=== PATIENT | male | born 1965 | race American Indian/Alaskan Native ===

== ENCOUNTER 2019-08-28 11:23 | Emergency (ER) | payer SELFPAY ==
[2019-08-28 12:16] VITALS: BP 152/94
--- NOTE | 2019-08-28 12:17 | Event Note ---
ED Screening Note ED Screening Note: pt presents N/V/D that began three days ago states he has associated headache and generalized weakness abd cramping no known sick contacts no recent travel no fever pmhx HTN no allergies to meds This initial assessment/diagnostic orders/clinical plan/treatment(s) is/are subject to change based on patients health status, clinical progression and re- assessment by fellow clinical providers in the ED. Further treatment and workup at subsequent clinical providers discretion. Patient/guardian urged not to elope from the ED as their condition may be serious if not clinically assessed and managed. Initial orders include: labs
[2019-08-28 12:50] LABS: Basophils % (Auto) 0.6 % (0.0-1.8); Eosinophils # (Auto) 0.1 K/mm3 (0.0-0.4); Eosinophils % (Auto) 2.3 % (0.0-4.3); Hematocrit 41.1 % (35.5-45.6); Hemoglobin 13.8 gm/dl (11.8-15.2); Lymphocytes % (Auto) 15.3 % (13.4-35.0); Mean Corpuscular HGB Conc 34 % (32-34); Mean Corpuscular Volume 83 fl (84-94); Monocytes # (Auto) 0.7 K/mm3 (0.0-0.8); Monocytes % (Auto) 11.5 % (0.0-7.3); Platelet Count 322 K/mm3 (140-440); Red Blood Count 4.97 M/mm3 (3.65-5.03); Red Cell Distribution Width 14.4 % (13.2-15.2)
[2019-08-28 13:05] LABS: Alanine Aminotransferase 10 units/L (7-56); Albumin 4.4 g/dL (3.9-5); BUN/Creatinine Ratio 11; Blood Urea Nitrogen 14 mg/dL (9-20); Calcium 9.9 mg/dL (8.4-10.2); Hemolysis Index 21
[2019-08-28] MEDS ORDERED: KETOROLAC 30 MG/1 ML INJ IV ONE (13:36)
[2019-08-28] MEDS ORDERED: SODIUM CHLORIDE 0.9% 1000 ML 1,000 ML IV ONE (13:36)
[2019-08-28] MEDS ORDERED: ONDANSETRON 4 MG/2 ML INJ IV ONE (13:36)
--- NOTE | 2019-08-28 14:08 | Emergency Department Report ---
Vomiting/Diarrhea - HPI Chief Complaint: Nausea/Vomiting/Diarrhea Stated Complaint: WEAK,STOMACH PAIN Time Seen by Provider: 08/28/19 12:15 Symptoms: Yes Watery Diarrhea, Yes Able to Tolerate Fluids, Yes Recent Unusual Foods, Yes Recent URI Symptoms, No Bloody diarrhea, No Fever, No Recent Untreated Water, No Recent use of Antibiotics, No Family w/ Similar Symptoms, No Contacts w/ Similar Symptoms, No Rash, No Hematuria Other History: This is a 54-year-old male with no prior medical history who presents the ED complaining of nausea and vomiting that began 3 days ago. Patient states prior to that he had upper respiratory infection which he has been coughing intermittently prior to that. ED Review of Systems ROS: Stated complaint: WEAK,STOMACH PAIN Other details as noted in HPI Comment: All other systems reviewed and negative ED Past Medical Hx - Past Medical History Previous Medical History?: Yes Hx Hypertension: Yes - Surgical History Past Surgical History?: Yes Additional Surgical History: Right hand surgery - Social History Smoking Status: Current Every Day Smoker Substance Use Type: None - Medications Home Medications: Home Medications Medication Instructions Recorded Confirmed Last Taken Type Ondansetron [Zofran ODT TAB] 8 mg PO Q12HR #20 tab.rapdis 08/28/19 Unknown Rx Vomiting Diarrhea Exam - Exam General: Vital signs noted. No distress. Alert and acting appropriately. HEENT: Yes Moist Mucous Membranes, No Pharyngeal Erythema, No Pharyngeal Exudates, No Rhinorrhea, No Conjuctival Injection, No Frontal Tenderness, No Maxillary Tenderness Neck: No Adenopathy, No Rigidity Lungs: Yes Clear Lung Sounds, Yes Good Air Exchange, No Wheezes, No Stridor, No Cough, No Nasal Flaring, No Retractions, No Use of Accessory Muscles Heart exam: Regular: Yes, Murmur: No, Tachycardia: No Abdomen: Tenderness: No, Peritoneal Signs: No, Distention: No, Hyperactive Bowel sounds: No Skin exam: Rash: No, Edema: No, Normal turgor: Yes Neurologic: Alert and oriented, no deficits. Musculoskeletal: Unremarkable. ED Course Vital Signs 08/28/19 08/28/19 11:38 13:57 Temperature 98.4 F Pulse Rate 82 Respiratory 18 16 Rate Blood Pressure 152/94 O2 Sat by Pulse 100 Oximetry ED Medical Decision Making - Lab Data Result diagrams: 08/28/19 12:23 08/28/19 12:23 Laboratory Last Values WBC 6.3 K/mm3 (4.5-11.0) 08/28/19 12: RBC 4.97 M/mm3 (3.65-5.03) 08/28/19 12: Hgb 13.8 gm/dl (11.8-15.2) 08/28/19 12:23 Hct 41.1 % (35.5-45.6) 08/28/19 12: MCV 83 fl (84-94) L 08/28/19 12: MCH 28 pg (28-32) 08/28/19 12: MCHC 34 % (32-34) 08/28/19 12: RDW 14.4 % (13.2-15.2) 08/28/19 12: Plt Count 322 K/mm3 (140-440) 08/28/19 12: Lymph % (Auto) 15.3 % (13.4-35.0) 08/28/19 12: Snyder % (Auto) 11.5 % (0.0-7.3) H 08/28/19 12: Eos % (Auto) 2.3 % (0.0-4.3) 08/28/19 12: Baso % (Auto) 0.6 % (0.0-1.8) 08/28/19: Lymph # 1.0 K/mm3 (1.2-5.4) L 08/28/19 12: Snyder # 0.7 K/mm3 (0.0-0.8) 08/28/19 12: Eos # 0.1 K/mm3 (0.0-0.4) 08/28/19 12: Baso # 0.0 K/mm3 (0.0-0.1) 08/28/19 12: Seg Neutrophils % 70.3 % (40.0-70.0) H 08/28/19 12: Seg Neutrophils # 4.4 K/mm3 (1.8-7.7) 08/28/19 12: Sodium 140 mmol/L (137-145) 08/28/19 12: Potassium 3.8 mmol/L (3.6-5.0) 08/28/19 12: Chloride 99.9 mmol/L (98-107) 08/28/19 12:23 Carbon Dioxide 25 mmol/L (22-30) 08/28/19 12:23 Anion Gap 19 mmol/L 08/28/19 12:23 BUN 14 mg/dL (9-20) 08/28/19 12:23 Creatinine 1.3 mg/dL (0.8-1.5) 08/28/19 12:23 Estimated GFR > 60 ml/min 08/28/19 12:23 BUN/Creatinine Ratio 11 % 08/28/19 12:23 Glucose 91 mg/dL (75-100) 08/28/19 12:23 Calcium 9.9 mg/dL (8.4-10.2) 08/28/19 12:23 Total Bilirubin 0.40 mg/dL (0.1-1.2) 08/28/19 12:23 AST 19 units/L (5-40) 08/28/19 12:23 ALT 10 units/L (7-56) 08/28/19 12:23 Alkaline Phosphatase 54 units/L (35-129) 08/28/19 12:23 Total Protein 7.7 g/dL (6.3-8.2) 08/28/19 12:23 Albumin 4.4 g/dL (3.9-5) 08/28/19 12:23 Albumin/Globulin Ratio 1.3 % 08/28/19 12:23 Lipase 44 units/L (13-60) 08/28/19 12:23 - Radiology Data Radiology results: report reviewed, image reviewed - Medical Decision Making 54-year-old male presents with mild gastroenteritis/food poisoning All labs within normal limits. Patient has no cytosis. Discussed with patient hydrate increase Discussed Zofran use for nausea. Discussed to follow-up with primary care physician. Discussed if worsening symptoms return to the ED. Vital signs are normal patient is in no acute distress Critical care attestation.: If time is entered above; I have spent that time in minutes in the direct care of this critically ill patient, excluding procedure time. ED Disposition Clinical Impression: Acute gastroenteritis, Food poisoning Disposition: DC-01 TO HOME OR SELFCARE Is pt being admited?: No Does the pt Need Aspirin: No Condition: Stable Instructions: Food Poisoning (ED), Gastroenteritis (ED) Additional Instructions: Make sure to follow up with the primary care physician as discussed. Take all your medications as you've been prescribed. If you have any worsening symptoms or develop new symptoms please return to ED immediately. Prescriptions: Ondansetron [Zofran ODT TAB] 8 mg PO Q12HR #20 tab.rapdis Referrals: LYDIA CHANEY MD [Primary Care Provider] - 3-5 Days [facility] [Outside] - 3-5 Days [facility] [Outside] - 3-5 Days Forms: Accompanied Note, Work/School Release Form(ED) Time of Disposition: 14:44
--- NOTE | 2019-08-28 14:22 | XRay Report ---
CHEST 2 VIEWS 1412 INDICATION / CLINICAL INFORMATION: cough COMPARISON: None available. FINDINGS: SUPPORT DEVICES: None. HEART / MEDIASTINUM: No significant abnormality. LUNGS / PLEURA: No significant pulmonary or pleural abnormality. No pneumothorax. ADDITIONAL FINDINGS: No significant additional findings. IMPRESSION: No significant acute abnormality Signer Name: Deny Dotson MD Signed: 08/28/2019 2:18 PM Workstation Name: [id number]
== END 2019-08-28 14:54 | disposition home or self-care (01) ==
LOC: ED 11:23
DX: A05.9 Bacterial foodborne intoxication, unspecified (principal); R11.2 Nausea with vomiting, unspecified; F17.200 Nicotine dependence, unspecified, uncomplicated; Z79.899 Other long term (current) drug therapy
CPT/HCPCS: 36415; 71046; 80053; 83690; 85025; 96361; 96374; 96375; 99284; J1885; J2405; J7030